=== PATIENT | male | born 1975 | race Caucasian/White ===

== ENCOUNTER → 2018-11-04 | Outpatient (CLI) | payer OTHER ==
--- NOTE | 2018-11-04 18:21 | Diagnostic Imaging Report ---
INDICATION: Left leg injury, pain. COMPARISON: None. EXAMINATION: Four views of the left tibia and fibula were obtained. FINDINGS: No fracture or dislocation. There is a normal variant bipartite patella. There is no soft tissue foreign body. IMPRESSION: No acute fracture or dislocation. Report was called to Hailee Garcia APRN at 6:18 p.m., by dominik. Dictated by: Dictated on workstation # [id number]
== END ==
LOC: RAD 17:24
PROVIDERS: ATTEND Nurse Practitioner Family
DX: S87.82XA Crushing injury of left lower leg, initial encounter (principal)
CPT/HCPCS: 73590